=== PATIENT | female | born 1980 | race Caucasian/White ===

== ENCOUNTER 2020-02-06 08:56 | Outpatient (REF) | payer BC, SELFPAY ==
--- NOTE | 2020-02-06 | XR_ITS ---
EXAMINATION: XR CHEST CLINICAL INFORMATION: Shortness of breath. Mild intermittent asthma. COMPARISON: None TECHNIQUE: 2 views of the chest were obtained. FINDINGS: Lungs are well-inflated and clear. Trachea is midline in position. No interstitial disease, consolidation or mass. No pleural effusion or pneumothorax. Cardiac silhouette and pulmonary vessels are normal in size. The mediastinum and edd have normal contour. The visualized bones, and upper abdomen, are unremarkable. XR/XR chest 2V IMPRESSION: No acute cardiopulmonary abnormality.
[2020-02-06 10:06] LABS: MANUAL DIFF FLAG NO
[2020-02-06 10:33] LABS: Basophils Percent Auto 0.7 % (0-2); Eosinophils Absolute Auto 0.2 X10*3/uL (0.0-0.4); Eosinophils Percent Auto 4.1 % (0-4); Hematocrit 38.6 % (37-47); Imm Gran Abs Auto 0.01 X10*3/uL (0.00-0.03); Imm Gran Pct Auto 0.2 % (0.0-0.4); Lymphocytes Absolute Auto 2.1 X10*3/uL (1.2-4.9); Lymphocytes Percent Auto 38.1 % (20-40); Mean Corpuscular HGB Conc 33.7 g/dl (31.0-35.0); Mean Corpuscular Hemoglobin 29.2 pg (27.0-33.0); Mean Corpuscular Volume 86.7 fL (80-98); Mean Platelet Volume 11.3 fL (9.4-12.3); Monocytes Absolute Auto 0.3 X10*3/uL (0.1-1.2); Neutrophils Absolute Auto 2.8 X10*3/uL (2.0-8.3); Neutrophils Percent Auto 51.9 % (45-73); Platelet Count 252 X10*3/uL (160-400); Red Blood Count 4.45 X10*6/uL (4.20-5.50); Red Cell Distribution Width 12.8 % (11.0-16.0); White Blood Count 5.4 X10*3/uL (4.8-10.8)
[2020-02-06 10:39] LABS: Alanine Aminotransferase 11 U/L (0-31); Albumin Level 4.3 g/dL (3.5-5.0); Alkaline Phosphatase 28 U/L (39-117); Anion Gap 14 (12-20); Aspartate Amino Transferase 14 U/L (5-31); Bilirubin Total 0.6 mg/dL (0.0-1.0); Blood Urea Nitrogen 13 mg/dL (9-16); Calcium 9.1 mg/dL (8.4-10.2); Carbon Dioxide 23 mmol/L (22-29); Chloride 108 mmol/L (96-108); Cholesterol 190 mg/dL; Estimated Glomerular Filt Rate > 60; Glucose Fasting 81 mg/dL (60-99); HDL Cholesterol 79 mg/dL; LDL Cholesterol Calculated 105 mg/dl; Potassium 3.9 mmol/l (3.3-5.1); Sodium 141 mmol/L (135-145); Total Protein 6.9 g/dL (6.5-8.0); Triglycerides 33 mg/dL
[2020-02-06 10:51] LABS: Thyroid Stimulating Hormone 0.83 uIU/mL (0.32-4.0); Vitamin D 25-OH Total 48.2 ng/mL (>30)
[2020-02-07 07:48] LABS: SARS COV2 IgG Negative (Negative)
== END 2020-02-06 08:57 | disposition home or self-care (01) ==
LOC: HO.LAB 08:56
PROVIDERS: PCP Internal Medicine; Visit Provider Internal Medicine
DX: R06.02 Shortness of breath (principal); J45.20 Mild intermittent asthma, uncomplicated; E03.9 Hypothyroidism, unspecified; E55.9 Vitamin D deficiency, unspecified
CPT/HCPCS: 36415; 71046; 80053; 80061; 82306; 84439; 84443; 85025; 86769

== ENCOUNTER 2020-12-03 10:31 | Outpatient (REF) | payer BC, SELFPAY ==
[2020-12-03 11:53] LABS: Free T4 (Free Thyroxine) 1.08 ng/dL (0.71-1.85); Thyroid Stimulating Hormone 0.47 uIU/mL (0.32-4.0); Vitamin D 25-OH Total 37.6 ng/mL (>30)
== END 2020-12-03 10:32 | disposition home or self-care (01) ==
LOC: HO.LAB 10:31
PROVIDERS: PCP Internal Medicine; Visit Provider Neuromusculoskeletal Medicine, Sports Medicine
DX: E03.9 Hypothyroidism, unspecified (principal); E04.1 Nontoxic single thyroid nodule; E55.9 Vitamin D deficiency, unspecified
CPT/HCPCS: 36415; 82306; 84439; 84443

== ENCOUNTER 2021-04-10 15:32 | Outpatient (REF) | payer BC, SELFPAY ==
[2021-04-10 16:44] LABS: Free T4 (Free Thyroxine) 0.99 ng/dL (0.71-1.85); Thyroid Stimulating Hormone 0.88 uIU/mL (0.32-4.0); Vitamin D 25-OH Total 33.2 ng/mL (>30)
== END 2021-04-10 15:33 | disposition home or self-care (01) ==
LOC: HO.LAB 15:32
PROVIDERS: PCP Internal Medicine; Visit Provider Neuromusculoskeletal Medicine, Sports Medicine
DX: E04.0 Nontoxic diffuse goiter (principal); E03.2 Hypothyroidism due to medicaments and other exogenous substances; E55.9 Vitamin D deficiency, unspecified
CPT/HCPCS: 36415; 82306; 84439; 84443

== ENCOUNTER 2021-04-26 16:03 | Outpatient (REF) | payer BC, SELFPAY ==
--- NOTE | ~2021-04-26 | US_ITS ---
EXAMINATION: US THYROID CLINICAL INFORMATION: Hypothyroid, goiter. COMPARISON: None TECHNIQUE: Linear transducer grayscale and color Doppler examination with attention to the region of the thyroid. FINDINGS: SIZE: Measurements of the thyroid lobes and nodules are given in sagittal, anteroposterior and transverse dimensions respectively. Right Thyroid Lobe: 3.6 x 1.0 x 1.0 cm, volume 1.9 mL. Parenchyma: The gland echotexture is homogeneous. Thyroid vascularity is normal. Left Thyroid Lobe: 3.7 x 1.0 x 1.0 cm, volume 1.9 mL. Parenchyma: The gland echotexture is homogeneous. Thyroid vascularity is normal. Isthmus: 0.3 cm in maximum AP dimension. No focal thyroid nodule is seen. NODES: There are small lymph nodes seen in the right midpole measuring 1.5 x 0.7 x 0.5 cm and 0.8 x 0.6 x 0.4 cm. US/US thyroid IMPRESSION: 1. Unremarkable thyroid ultrasound. No nodule seen. 2. There are small lymph nodes in the right mid neck with the largest measuring 1.5 cm without aggressive features. ACR TI-RADS RECOMMENDATION REFERENCE: Ultrasound-guided fine-needle aspiration, followup ultrasound, no further follow up. * TR1 (0 point) and TR 2 (2 points): No FNA or follow up * TR3 (3 points): FNA if more than or equal to 2.5 cm in maximum dimension, followup ultrasound in 1, 3 and 5 years if 1.5 to 2.4 cm in maximum dimension. * TR4 (4-6 points): FNA if more than or equal to 1.5 cm in maximum dimension, followup ultrasound in 1, 2, 3 and 5 years if 1 to 1.4 cm in maximum dimension. * TR5 (more than or equal to 7 points): FNA if more than or equal to 1 cm in maximum dimension, followup ultrasound every year for 5 years if 0.5 to 0.9 cm in maximum dimension. * TR3, TR4 or TR5 nodules that are below the size threshold for follow up receive no follow up.
== END 2021-04-26 16:04 | disposition home or self-care (01) ==
LOC: HO.US 16:03
PROVIDERS: PCP Internal Medicine; Visit Provider Neuromusculoskeletal Medicine, Sports Medicine
DX: E03.9 Hypothyroidism, unspecified (principal); E04.9 Nontoxic goiter, unspecified
CPT/HCPCS: 76536

== ENCOUNTER 2022-04-10 15:29 | Outpatient (REF) | payer BC, SELFPAY ==
[2022-04-10 18:13] LABS: Free T4 (Free Thyroxine) 1.16 ng/dL (0.71-1.85); Thyroid Stimulating Hormone 0.75 uIU/mL (0.32-4.0); Vitamin D 25-OH Total 49.6 ng/mL (>30)
== END 2022-04-10 15:30 | disposition home or self-care (01) ==
LOC: HO.LAB 15:29
PROVIDERS: PCP Internal Medicine; Visit Provider Neuromusculoskeletal Medicine, Sports Medicine
DX: E03.2 Hypothyroidism due to medicaments and other exogenous substances (principal); E55.9 Vitamin D deficiency, unspecified
CPT/HCPCS: 36415; 82306; 84439; 84443

== ENCOUNTER 2022-10-27 07:50 | Outpatient (REF) | payer BC, SELFPAY ==
[2022-10-27 08:11] LABS: MANUAL DIFF FLAG NO
[2022-10-27 08:28] LABS: Basophils Absolute Auto 0.1 X10*3/uL (0.0-0.2); Eosinophils Absolute Auto 0.2 X10*3/uL (0.0-0.4); Eosinophils Percent Auto 4.1 % (0-4); Hematocrit 36.6 % (37.0-47.0); Hemoglobin 12.3 g/dl (12.0-16.0); Imm Gran Abs Auto 0.01 X10*3/uL (0.00-0.03); Imm Gran Pct Auto 0.2 % (0.0-0.4); Lymphocytes Percent Auto 38.6 % (20-40); Mean Corpuscular HGB Conc 33.6 g/dl (31.0-35.0); Mean Corpuscular Hemoglobin 30.8 pg (27.0-33.0); Mean Corpuscular Volume 91.5 fL (80.0-98.0); Mean Platelet Volume 10.5 fL (9.4-12.3); Monocytes Absolute Auto 0.2 X10*3/uL (0.1-1.2); Monocytes Percent Auto 4.5 % (2-11); Neutrophils Absolute Auto 2.6 x10*3/uL (2.0-8.3); Neutrophils Percent Auto 51.6 % (45-73); Platelet Count 247 X10*3/uL (160-400); Red Cell Distribution Width 12.1 % (11.0-16.0); White Blood Count 5.1 X10*3/uL (4.8-10.8)
[2022-10-27 09:14] LABS: Alanine Aminotransferase 10 U/L (0-31); Albumin Level 3.9 g/dL (3.5-5.0); Alkaline Phosphatase 26 U/L (39-117); Anion Gap 13 (12-20); Aspartate Amino Transferase 14 U/L (5-31); Bilirubin Total 0.5 mg/dL (0.0-1.0); Blood Urea Nitrogen 12 mg/dL (9-16); Calcium 9.2 mg/dL (8.4-10.2); Carbon Dioxide 20 mmol/L (22-29); Chloride 110 mmol/L (96-108); Cholesterol 166 mg/dL (<200); Estimated Glomerular Filt Rate > 60; Glucose Fasting 78 mg/dL (60-99); HDL Cholesterol 61 mg/dL (>40); LDL Cholesterol Calculated 99 mg/dL (<100); Potassium 3.7 mmol/L (3.3-5.1); Sodium 139 mmol/L (135-145); Total Protein 6.4 g/dL (6.5-8.0); Triglycerides 31 mg/dL (<150)
[2022-10-27 10:38] LABS: Vitamin D 25-OH Total 37.9 ng/mL (>30)
== END 2022-10-27 07:51 | disposition home or self-care (01) ==
LOC: HO.LAB 07:50
PROVIDERS: PCP Internal Medicine; Visit Provider Internal Medicine
DX: Z00.00 Encounter for general adult medical examination without abnormal findings (principal); E03.9 Hypothyroidism, unspecified; E55.9 Vitamin D deficiency, unspecified; J45.20 Mild intermittent asthma, uncomplicated
CPT/HCPCS: 36415; 80053; 80061; 82306; 84443; 85025

== ENCOUNTER 2023-04-06 09:39 | Outpatient (REF) | payer BC, SELFPAY ==
[2023-04-06 11:27] LABS: Alanine Aminotransferase 15 U/L (0-31); Albumin Level 4.4 g/dL (3.5-5.0); Anion Gap 14 (12-20); Aspartate Amino Transferase 14 U/L (5-31); Blood Urea Nitrogen 12 mg/dL (9-16); Calcium 9.4 mg/dL (8.4-10.2); Carbon Dioxide 25 mmol/L (22-29); Chloride 105 mmol/L (96-108); Cholesterol 189 mg/dL (<200); Estimated Glomerular Filt Rate > 60; Glucose Fasting 87 mg/dL (60-99); HDL Cholesterol 80 mg/dL (>40); LDL Cholesterol Calculated 102 mg/dL (<100); Magnesium 2.2 mg/dL (1.6-2.6); Phosphorus 3.6 mg/dL (2.7-4.5); Potassium 3.7 mmol/L (3.3-5.1); Sodium 140 mmol/L (135-145); Triglycerides 39 mg/dL (<150)
[2023-04-06 11:44] LABS: Free T4 (Free Thyroxine) 1.18 ng/dL (0.71-1.85); Thyroid Stimulating Hormone 0.53 uIU/mL (0.32-4.0); Vitamin D 25-OH Total 36.6 ng/mL (>30)
== END 2023-04-06 09:40 | disposition home or self-care (01) ==
LOC: HO.LAB 09:39
PROVIDERS: PCP Internal Medicine; Visit Provider Neuromusculoskeletal Medicine, Sports Medicine
DX: E55.9 Vitamin D deficiency, unspecified (principal); E03.2 Hypothyroidism due to medicaments and other exogenous substances
CPT/HCPCS: 36415; 80051; 80061; 82040; 82306; 82310; 82565; 82947; 83735; 84100; 84439; 84443; 84450; 84460; 84520

== ENCOUNTER 2023-09-02 09:13 | Outpatient (REF) | payer BC, SELFPAY ==
[2023-09-02 11:08] LABS: Alanine Aminotransferase 14 U/L (0-31); Albumin Level 4.2 g/dL (3.5-5.0); Anion Gap 13 (12-20); Aspartate Amino Transferase 18 U/L (5-31); Blood Urea Nitrogen 13 mg/dL (9-16); Calcium 9.3 mg/dL (8.4-10.2); Carbon Dioxide 25 mmol/L (22-29); Chloride 106 mmol/L (96-108); Cholesterol 195 mg/dL (<200); Estimated Glomerular Filt Rate > 60; Glucose Fasting 77 mg/dL (60-99); HDL Cholesterol 68 mg/dL (>40); LDL Cholesterol Calculated 117 mg/dL (<100); Magnesium 2.2 mg/dL (1.6-2.6); Phosphorus 3.7 mg/dL (2.7-4.5); Potassium 3.7 mmol/L (3.3-5.1); Sodium 140 mmol/L (135-145); Triglycerides 54 mg/dL (<150)
[2023-09-02 11:15] LABS: Free T4 (Free Thyroxine) 1.02 ng/dL (0.71-1.85); Thyroid Stimulating Hormone 0.91 uIU/mL (0.32-4.0); Vitamin D 25-OH Total 41.6 ng/mL (>30)
== END 2023-09-02 09:14 | disposition home or self-care (01) ==
LOC: HO.LAB 09:13
PROVIDERS: PCP Internal Medicine; Visit Provider Neuromusculoskeletal Medicine, Sports Medicine
DX: E04.0 Nontoxic diffuse goiter (principal); E03.2 Hypothyroidism due to medicaments and other exogenous substances; E55.9 Vitamin D deficiency, unspecified; Z13.1 Encounter for screening for diabetes mellitus
CPT/HCPCS: 36415; 80051; 80061; 82040; 82306; 82310; 82565; 82947; 83735; 84100; 84439; 84443; 84450; 84460; 84520

== ENCOUNTER 2023-12-13 15:25 | Outpatient (REF) | payer BC, SELFPAY ==
[2023-12-13 17:00] LABS: Albumin Level 4.2 g/dL (3.5-5.0); Calcium 9.2 mg/dL (8.4-10.2); Phosphorus 3.9 mg/dL (2.7-4.5)
[2023-12-13 17:05] LABS: Thyroid Stimulating Hormone 0.74 uIU/mL (0.32-4.0); Vitamin D 25-OH Total 60.9 ng/mL (>30)
[2023-12-14 09:04] LABS: Triiodothyronine T3 Free 2.8 pg/mL (2.3-4.2)
== END 2023-12-13 15:26 | disposition home or self-care (01) ==
LOC: HO.LAB 15:25
PROVIDERS: PCP Internal Medicine; Visit Provider Neuromusculoskeletal Medicine, Sports Medicine
DX: E03.2 Hypothyroidism due to medicaments and other exogenous substances (principal); E55.9 Vitamin D deficiency, unspecified
CPT/HCPCS: 36415; 82040; 82306; 82310; 83735; 84100; 84439; 84443; 84481

== ENCOUNTER 2024-04-25 10:06 | Outpatient (REF) | payer BC, SELFPAY ==
[2024-04-25 12:48] LABS: Alanine Aminotransferase 18 U/L (0-31); Albumin Level 4.2 g/dL (3.5-5.0); Anion Gap 12 (12-20); Aspartate Amino Transferase 22 U/L (5-31); Blood Urea Nitrogen 11 mg/dL (9-16); Calcium 9.2 mg/dL (8.4-10.2); Carbon Dioxide 25 mmol/L (22-29); Chloride 108 mmol/L (96-108); Cholesterol 224 mg/dL (<200); Estimated Glomerular Filt Rate > 60; Glucose Fasting 86 mg/dL (60-99); HDL Cholesterol 69 mg/dL (>40); LDL Cholesterol Calculated 146 mg/dL (<100); Magnesium 2.3 mg/dL (1.6-2.6); Phosphorus 3.5 mg/dL (2.7-4.5); Potassium 3.9 mmol/L (3.3-5.1); Sodium 141 mmol/L (135-145); Triglycerides 47 mg/dL (<150)
[2024-04-25 13:02] LABS: Free T4 (Free Thyroxine) 1.27 ng/dL (0.71-1.85); Thyroid Stimulating Hormone 0.62 uIU/mL (0.32-4.0); Vitamin D 25-OH Total 50.5 ng/mL (>30)
== END 2024-04-25 10:07 | disposition home or self-care (01) ==
LOC: HO.LAB 10:06
PROVIDERS: PCP Internal Medicine; Visit Provider Neuromusculoskeletal Medicine, Sports Medicine
DX: M94.9 Disorder of cartilage, unspecified (principal); N28.9 Disorder of kidney and ureter, unspecified
CPT/HCPCS: 36415; 80051; 80061; 82040; 82306; 82310; 82565; 82947; 83735; 84100; 84439; 84443; 84450; 84460; 84520

== ENCOUNTER 2024-08-13 14:27 | Outpatient (AMB) | payer BC, SELFPAY ==
--- NOTE | 2024-08-13 14:31 | MHC.PC.OV ---
Vital Signs 08/13/24 14:35 Height 5 ft 1.81 in Weight 140 lb BMI 25.8 BP 119/56 L Respiration 14 Pulse 70 Pulse Source Pulse Oximeter Temp 97.8 F Temp Source Temporal Artery Scan Pulse Oximetry (%) 99 Oxygen Delivery Method Room Air Intake Visit Reasons: follow up 3D Designer Required: No Accompanied by: Self / Same As Patient Allergies amoxicillin Allergy (Mild, Verified 08/13/24 14:59) hives Sulfa (Sulfonamide Antibiotics) Allergy (Mild, Verified 08/13/24 14:59) Hives liquid prednisone Allergy (Mild, Uncoded 08/13/24 14:59) Vomiting Medication List - Last Reconciled 08/13/24 by Penny Goss PA-C albuterol sulfate 90 mcg/actuation (Ventolin HFA) 2 puffs inhalation Q6H PRN cholecalciferol (vitamin D3) 50 mcg PO DAILY levothyroxine (Synthroid) 88 mcg PO DAILY multivitamin 1 tab PO DAILY [id number] fum-folic ac-om3 28 mg iron- 800 mcg (One A Day Women's DHA) pkgs PO Tobacco use date assessed: 08/13/24 Dental Screening Dental Screen Date: 08/13/24 Did you have a dental visit in the last 12 months?: Yes Did you have a dental problem in the last 6 months where you did not have access to dental care?: No Was dental information given to patient?: Patient has dentist HPI follow up HPI Details The patient is a 44-year-old female presenting for a new patient appointment and referral for infertility treatment. The patient and her are attempting to conceive, but have been unsuccessful thus far. She was referred by her ENVIRONMENTAL ENGINEERING ASSISTANT to seek further evaluation and treatment for infertility. The patient has a history of hypercholesterolemia, with recent blood work indicating a total cholesterol level of 224 mg/dL, which is above the desired level of 200 mg/dL. Her LDL cholesterol decreased slightly from 117 mg/dL to 114 mg/dL, and her HDL cholesterol is 69 mg/dL. She has a history of anemia, which has been noted in past medical evaluations. The patient reports a history of hypothyroidism and is currently on levothyroxine therapy. The patient has gained approximately 12 pounds over the past year and a half, despite maintaining a healthy diet and lifestyle. She denies any significant changes in her diet or exercise routine that could account for this weight gain. 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 - Family Planning: The patient and her are actively trying to conceive. - Nutrition: The patient maintains a healthy diet, avoiding soda and consuming steel-cut oats. - Weight Management: The patient has gained 12 pounds over the last year and a half despite a healthy lifestyle. [facility] Medical History (Updated 08/13/24 @ 15:25 by Penny Goss PA-C) Pure hypercholesterolemia, unspecified Infertility management History of mammogram (~01/08/23) History of COVID-19 Palpitations Mononucleosis Migraine headache Anemia Vitamin D deficiency Hypothyroidism Establishing care with new doctor, encounter for Surgical History H/O wisdom tooth extraction History of tonsillectomy Family History Father Dementia High cholesterol Mother Osteoporosis High cholesterol 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 1. Little interest or pleasure in doing things: not at all 2. Feeling down, depressed, or hopeless: not at all 3. Trouble falling or staying asleep, or sleeping too much: not at all 4. Feeling tired or having little energy: not at all 5. Poor appetite or overeating: not at all 6. Feeling bad about yourself - or that you are a failure or have let yourself or your family down: not at all 7. Trouble concentrating on things, such as reading the newspaper or watching television: not at all 8. Moving or speaking so slowly that other people could have noticed. Or the opposite - being so fidgety or restless that you have been moving around a lot more than usual: not at all 9. Thoughts that you would be better off or of hurting yourself in some way: not at all Total score: 0 Depression Screening Interpretation: Negative Depression Screening Done: Yes [id number] - PHQ-9 Billing: Yes Source: Developed by Drs. Paul Segal, Erica Vincent, Brice Leger and colleagues, with an educational gamal from [employer]. Thrive Questionnaire Date Thrive assessed: 08/13/24 I am a: Patient What is your living situation today?: I have a steady place to live Within the past 12 months, did the food you bought not last and you didn't have the money to get more?: Never true Within the past 12 months, did you worry whether your food would run out before you got money to buy more?: Never true Do you have trouble paying for medicines?: No Do you have trouble getting transportation to medical appointments?: No Do you have trouble paying your heating and electricity bill?: No Do you have trouble taking care of your child, family member or friend?: No Do you have trouble with day-to-day activities such as bathing, preparing meals, shopping, managing finances, etc.?: No Are you currently unemployed and looking for a job?: No Are you interested in more education?: No Please select the resources that you would like help with: None THRIVE Score: 0 AUDIT C Alcohol Use Questionnaire (AUDIT-C) 1. How often do you have a drink containing alcohol?: Never 3. How often do you have six or more drinks on one occasion?: Never Total Score: 0 Score Reviewed/Action Taken: No SHELLEY-7 AMB Questionnaire SHELLEY-7 Date SHELLEY - 7 assessed: 08/13/24 Feeling nervous, anxious, or on edge: 0 = Not at all Not being able to stop or control worryin = Not at all Worrying too much about different things: 0 = Not at all Trouble relaxin = Not at all Being so restless that it is hard to sit still: 0 = Not at all Becoming easily annoyed or irritable: 0 = Not at all Feeling afraid as if something awful might happen: 0 = Not at all Total SHELLEY-7 score (0-4 normal; 5-9 mild; 10-14 moderate; 15-21 severe): 0 Source: Developed by Erica Kimball.W. Carlton, Brice Leger and colleagues, with an educational gamal from [employer]. SHELLEY-7 Assessment Billing SHELLEY-7 Assessment Tool: SHELLEY-7 Assessment 45205 Review of Systems Const Details: - Cardiovascular: Denies chest pain, palpitations, or syncope. - Respiratory: Denies dyspnea, cough, or wheezing. - Gastrointestinal: Denies abdominal pain, nausea, or vomiting. - Genitourinary: Denies dysuria or abnormal discharge. - Musculoskeletal: Denies back pain or joint pain. - Neurological: Denies headaches or dizziness. - General: Reports weight gain of 12 pounds over the past year and a half. Physical exam (Primary Care) Vital Signs: Last Vital Signs Temp 97.8 F 08/13/24 14:35 Pulse 70 08/13/24 14:35 Resp 14 08/13/24 14:35 BP 119/56 L 08/13/24 14:35 Pulse Ox 99 08/13/24 14:35 Oxygen Delivery Method Room Air 08/13/24 14:35 Care Plan Goal for BP management: <140/90 at Goal BMI result Body Mass Index 25.8 BMI Assessment/Plan discussion: High BMI High, discussed plan: lifestyle, weight reduction, dietary, physical activity and alcohol moderation Tobacco/Smoking Status: Tobacco use Status Tobacco use date assessed 08/13/24 08/13/24 14:33 Patient Tobacco Use Status Never used Tobacco 08/13/24 14:46 PHQ-9: PHQ-9 Score PHQ-9: Total score 0 08/13/24 14:33 Depression Screening Interpretation: Negative Thrive Assessment: Date of Thrive Assessment Date Thrive assessed 08/13/24 08/13/24 14:33 Const Other: Appearance: Alert. Oriented X3. No acute distress. Head: Normal external exam. Normocephalic. Atraumatic. Eyes: Pupils are equal, round, and reactive to light. Extraocular movements intact. Conjunctiva and sclera normal. Eyelids normal. Ears: External auditory canal normal. Tympanic membranes normal. Throat: Pharynx normal. Uvula midline. Moist mucous membranes. Neck: Normal inspection. Neck supple. Full range of motion. No adenopathy. Thyroid Normal. No meningeal signs. No neck mass noted. Cardiovascular: Normal heart rate and rhythm. Heart sound normal. No murmurs noted. Pulses normal throughout. Respiratory: No respiratory distress. Painless inspiration. Breath sounds normal. No wheezes/rales/rhonchi noted. Chest nontender. No accessory muscle usage noted or decreased air movement noted. Abdomen: Soft and nontender. Bowel sounds normal in all 4 quadrants. No distention noted. No organomegaly noted. No visible injury noted. Back: No costovertebral angle tenderness. Full range of motion noted. Skin: Skin warm and dry. Normal skin color. Normal skin turgor. No rashes/lesions/lacerations noted. Extremities: No lower extremity edema. Extremities exhibit normal range of motion. Extremities nontender. Neuro: Oriented X 3. No motor deficit. No sensory deficit. Reflexes normal. Results Reviewed Results Reviewed: - Labs: Total cholesterol 224 mg/dL, LDL cholesterol 114 mg/dL, HDL cholesterol 69 mg/dL. - Labs: Thyroid function tests normal. Coding Level of Care Code New Pt Level 4 (01310) Complex EM visit Add On G2211 Diagnoses Pure hypercholesterolemia, unspecified E78.00 Anemia D64.9 Hypothyroidism E03.9 Infertility management Z31.9 Additional Codes PHQ-9 - 93585 - PHQ-9 Billing: Yes ([id number]) SHELLEY-7 Assessment Billing - SHELLEY-7 Assessment Tool: SHELLEY-7 Assessment 61776 ([id number]) Assessment & Plan Assessment & Plan (1) Pure hypercholesterolemia, unspecified: Code(s): E78.00 - Pure hypercholesterolemia, unspecified Category: Medical Plan: The patient has hypercholesterolemia with a total cholesterol level of 224 mg/dL. She is advised against starting cholesterol medication due to a family history of adverse reactions. Dietary modifications were discussed, including reducing egg and cheese intake. Condition is chronic and stable will continue to monitor. (2) Anemia: Code(s): D64.9 - Anemia, unspecified Category: Medical Plan: The patient has a history of anemia and will undergo further blood work to assess current status. Iron studies and ferritin levels will be checked. Condition is chronic and stable will continue to monitor. (3) Hypothyroidism: Code(s): E03.9 - Hypothyroidism, unspecified Category: Medical Plan: The patient is on levothyroxine for hypothyroidism, with thyroid function tests reported as normal. Condition is chronic and stable continue to monitor. (4) Infertility management: Code(s): Z31.9 - Encounter for procreative management, unspecified Category: Medical Plan: The patient is experiencing infertility and has been referred to an IVF clinic for further evaluation and treatment. A referral to an shoe repair supervisor was also made to address any underlying hormonal issues. Condition is chronic and stable continue to monitor. Plan Plan Patient was informed and verbally consented to the use of an ambient scribe for clinic note documentation during this visit. 1. Hypercholesterolemia The patient has hypercholesterolemia with a total cholesterol level of 224 mg/dL. She is advised against starting cholesterol medication due to a family history of adverse reactions. Dietary modifications were discussed, including reducing egg and cheese intake. 2. Anemia The patient has a history of anemia and will undergo further blood work to assess current status. Iron studies and ferritin levels will be checked. 3. Hypothyroidism The patient is on levothyroxine for hypothyroidism, with thyroid function tests reported as normal. 4. Infertility The patient is experiencing infertility and has been referred to an IVF clinic for further evaluation and treatment. A referral to an shoe repair supervisor was also made to address any underlying hormonal issues. During the visit, we discussed the patient's hypercholesterolemia and the decision to avoid cholesterol medication due to her family history of adverse reactions. We reviewed dietary changes to help manage her cholesterol levels. We also addressed her history of anemia and planned for further blood work to evaluate her current status. The patient was referred to an IVF clinic and an shoe repair supervisor to address her infertility and any potential hormonal issues. Follow-up appointments and further evaluations were planned to monitor her conditions and progress. Orders: Orders Hemoglobin A1c Today Z00.00 - Encounter for general adult medical examination without abnormal findings Complete Blood Count Auto Diff Today Z00.00 - Encounter for general adult medical examination without abnormal findings Vitamin B12 and Folate Today Z00.00 - Encounter for general adult medical examination without abnormal findings IRON PROFILE Today D64.9 - Anemia, unspecified Ferritin Today D64.9 - Anemia, unspecified C Reactive Protein Today Z00.00 - Encounter for general adult medical examination without abnormal findings Referrals ENVIRONMENTAL ENGINEERING ASSISTANT Referral Z31.9 - Encounter for procreative management, unspecified Endocrinology Referral E03.9 - Hypothyroidism, unspecified, E55.9 - Vitamin D deficiency, unspecified Patient Instructions: - Follow a low-cholesterol diet, reducing intake of eggs and cheese. - Complete the recommended blood work, including iron studies and ferritin levels. - Attend follow-up appointments with the IVF clinic and shoe repair supervisor. - Monitor weight and maintain a healthy diet and lifestyle.
[2024-08-13 14:35] VITALS: BP 119/56; PULSE 70; RESP 14; TEMP 36.6; O2SAT 99; BMI 25.8
--- OUTSIDE RECORDS SUMMARY | 2024-08-13 15:43 | XMS_ITS | Data Portability ---
Author Organization [facility], , [facility] Address [address] [place] [address] Assessment Encounter Date Assessment Date Assessment LastModified by Organization Details LastModified Time 02/06/2016 02/06/2016 Counseled 15/30 minutes on IUD placement, mechanism of action and possible complications. Reminded 11 days to full protection from with Mirena or Carmen. Reasons to comeback include increasing pain, discharge, fever. Nothing in vagina 3-5 days . Return to office for string check if cannot find string 6 weeks. [email or web address] Not available 02/06/2016 13:35:33 05/10/2017 05/10/2017 After a discussion of treatment options, which included consideration of best practices and patient preferences, the following treatment plan and objectives were adopted: [email or web address] Not available 05/10/2017 15:20:58 03/29/2018 03/29/2018 IUD removed without difficulty. Will set up f/u with Caleb Heck for new IUD. [email or web address] Not available 03/29/2018 09:32:40 05/21/2018 05/21/2018 Counseled 15/30 minutes on IUD placement, mechanism of action and possible complications. Reminded 11 days to full protection from with Mirena or Carmen. Reasons to comeback include increasing pain, discharge, fever. Nothing in vagina 3-5 days . Return to office for string check if cannot find string 6 weeks. [email or web address] Not available 05/21/2018 15:11:14 Plan of Treatment Reminders Order Date Submit Date Provider Last Modified By Organization Details Last Modified Time Details Appointments None recorded. Lab test, urine 2015 016 [facility], [address] [place], [address], 6 04:11:14 Referral None recorded. Procedures None recorded. Surgeries None recorded. Imaging None recorded. Medication Orders None recorded. Patient Targets Encounter Date Encounter Id Patient Goals Patient Target Last Modified By Organization Details Last Modified Time 05/10/2017 [id number] get regular exercisehealthy diet rich in fruits, veggies and whole grains pkeough Not available 05/13/2017 12:44:43 Patient Instructions Encounter Date Encounter Id Patient Instructions Last Modified By Organization Details Last Modified Time 05/10/2017 [id number] Well Visit, Ages 18 to 65: Care Instructions [email or web address] Not available 05/10/2017 15:31:04 05/21/2018 [id number] After a discussion of treatment options, which included consideration of best practices and patient preferences, the above treatment plan and objectives were adopted as above. [email or web address] Not available 05/22/2018 12:41:12 Reason for Referral None Reported. Results Created Date Observation Date Name Description Value Unit Range Abnormal Flag Note LastModifiedBy Organization Detail LastModifiedTime 02/06/20 16 02/06/2016 pregn haim test, urine HCG POC NEGATI VE Not Available [address], [address], 02/06/2016 13:46:13 02/16/20 17 02/19/2017 T4, free, serum free T4 1.37 NG/dL 0.75-1 .54 Not Available [address], [address], 02/19/2017 14:19:46 02/16/20 17 02/19/2017 TSH, serum or plasm a TSH 0.88 uIU/m L 0.50-6 .00 The [employer] End[employer] rinol ogy and Ameri can Thyro id Assoc iatio n recom mend goal TSH value s betwe en 0.4-4 .0 mIU/m L. Not Available [address], [address], 02/19/2017 14:19:47 02/16/20 17 02/19/2017 vitam in D, 25-hy droxy , total , serum vitamin D 25-hydroxy EIA 36.7 NG/mL 20.0-9 9.9 Thera py is based on measu remen t of total 25-OH D, with level s less than 20 ng/mL indic ative of Vitam in D defic iency . Level s betwe en 20ng/ mL and 30 ng/mL sugge insuf ficie ncy. Optim al Level s are great er than 30 ng/mL . Not Available [address], [address], 02/19/2017 14:19:47 08/24/19 18 08/26/2017 T4, free, serum free T4 1.26 NG/dL 0.75-1 .54 Not Available [address], [address], 08/26/2017 12:38:55 08/24/19 18 08/26/2017 vitam in D, 25-hy droxy , total , serum vitamin D 25-hydroxy EIA 38.0 NG/mL 20.0-9 9.9 Thera py is based on measu remen t of total 25-OH D, with level s less than 20 ng/mL indic ative of Vitam in D defic iency . Level s betwe en 20ng/ mL and 30 ng/mL [facility] n[facility]. Optim al Level s are great er than 30 ng/mL . Not Available [address], [address], 08/26/2017 13:12:34 08/24/19 18 08/26/2017 TSH, serum or plasm a TSH 0.39 uIU/m L 0.50-6 .00 low The [employer]i can [employer]le ge [employer] Endoc rinol ogy and Ameri can Thyro id Assoc iatio n recom mend goal TSH value s betwe en 0.4-4 .0 mIU/m L. Not Available [address], [address], 08/26/2017 13:15:36 02/15/20 18 02/19/2018 T4, free, serum free T4 1.31 NG/dL 0.75-1 .54 Not Available [address], [address], 02/19/2018 11:55:50 02/15/20 18 02/19/2018 TSH, serum or plasm a TSH 1.05 uIU/m L 0.50-6 .00 The [employer] can [employer] ge [employer] Endoc rinol ogy and Ameri can Thyro id Assoc iatio n recom mend goal TSH value s betwe en 0.4-4 .0 mIU/m L. Not Available [address], [address], 02/19/2018 12:16:51 02/15/20 18 02/19/2018 vitam in D, 25-hy droxy , total , serum vitamin D 25-hydroxy EIA 31.2 NG/mL 20.0-9 9.9 Thera py is based on measu remen t of total 25-OH D, with level s less than 20 ng/mL indic ative of Vitam in D defic iency . Level s betwe en 20ng/ mL and 30 ng/mL sugge st insuf ficie ncy. Optim al Level s are great er than 30 ng/mL . Not Available [address], [address], 02/19/2018 12:16:52 05/22/19 19 05/21/2018 pregn haim test, urine HCG POC NEGATI VE Not Available [address], [address], 05/21/2018 15:44:24 11/15/19 17 11/13/2016 US, thyro id OBSERV ATION: Thyroi d ultras ound Goiter , hypoth yroidi sm The thyroi d displa ys no focal abnorm ality the right lobe measur es 3.5 x 1 x 1.7 cm the left lobe measur es 3.6 x 0.9 x 0.7 cm. The gland is of homoge neous but increa sed echote xture throug hout. A 11 x 16 x 6 mm lymph node is seen adjace nt to the lower pole of the right gland. Althou gh this node is not enlarg ed and does not displa y a fatty hilus. Impres kristin: Slight ly small gland with increa sed echoge nicity sugges tive of prior thyroi ditis. Normal size right lymph node adjace nt to the thyroi d which does not displa y entire ly normal anatom y, this is still probab ly of no clinic al signif icance unless the patien t has a known malign haim. Electr onical ly signed Geovany gonzalez Physic manjinder: Cole Velazquez [facility] (Imaging) [address], [place], [address], 05/10/2017 15:17:19 Result Notes None recorded. Problems Name Problem SNOMED Code Status Onset Date Resolution Date Notes Provider Name and Address Organization Details Recorded Time Hypothyroidi sm 34808468 Active no standing orders per [facility] 13:54:20 Problem Notes None recorded. Procedures Surgical History Date Name Laterality Status Provider Name and Address Organization Details Recorded Time 9 POC hCG Testing completed Verna garcia PA-C [address] [place] [address], [address] [place] [address], [facility] 05/21/2018 18:13:10 9 IUD Insertion completed Verna garcia PA-C [address] [place] [address], [phone], [facility] 05/21/2018 18:13:05 9 IUD Removal completed Peggy Beach NP [address] [place] [address], [phone], [facility] 03/29/2018 09:31:58 6 IUD Insertion completed Kimberly Ellis MD [address] [place] [address], [phone], [facility] 02/06/2016 14:13:18 Imaging Results None recorded. Procedure Notes None recorded. Medical Equipment None Reported. Allergies Allergen ID Allergen Name Allergen Category Reaction Reaction Severity Criticality Documentation Date Start Date Code Code System Note Provider Name and Address Organization Details Recorded Time 18180426 amoxicill in medicatio n Not available Not available Not available 09/14/2014 723 RxNorm Estephania Aly [facility] 5 15:06:30 377916 Substance with sulfonami de structure and antibacte rial mechanism of action (substanc e) medicatio n Not available Not available Not available 09/14/2014 94527 8003 SNOMED [facility] 5 15:06:30 Medications Name Sig Start Date Stop Date Status Note LastModified by Organization Details LastModified Time levothyrox ine 88 mcg tablet Take 1 tablet every day by oral route. active Not Available Not Available No t Available ParaGard T 380A 380 square mm intrauteri ne device Take by intraute rine route. 2018 active Placed 05/21/18 Not Available Not Available Not Available multivitam in 1 daily active Not Available Not Available Not Available Vitamin D2 2,000IU every day in the winter active Not Available Not Available No t Available albuterol sulfate 90 mcg/actuat ion breath activated powder inhaler Inhale 2 puffs every 4 hours by inhalati on route. 11/13 completed PRN Not Available Not Available Not Available Vitals Date Recorded Body height Body mass index (BMI) Body weight Systolic blood pressure Diastolic blood pressure Provider Name and Address Organization Details Last Updated DateTime 03/03/2018 157.48 cm 24.5 kg/m2 30042.38 g 118 mm[Hg] 72 mm[Hg] Penelope Yeung CMA [facility] 9 15:08:31 Date Recorded Body height Body mass index (BMI) Body weight Heart rate Systolic blood pressure Diastolic blood pressure Provider Name and Address Organization Details Last Updated DateTime 9 157.48 cm 24.7 kg/m2 50394.9 7 g 79 /min 122 mm[Hg] 76 mm[Hg] CALVIN Higuera [facility] 9 09:13:48 Date Recorded Body height Body mass index (BMI) Body weight Heart rate Systolic blood pressure Diastolic blood pressure Provider Name and Address Organization Details Last Updated DateTime 8 157.48 cm 23.9 kg/m2 35336.4 5 g 76 /min 110 mm[Hg] 64 mm[Hg] Estephania Aly MA [facility] 8 15:08:08 Date Recorded Body height Body mass index (BMI) Body weight Heart rate Oxygen saturation Oxygen saturation in Arterial blood by Pulse oximetry Systolic blood pressure Diastolic blood pressure Provider Name and Address Organization Details Last Updated DateTime 9 157.48 cm 24.4 kg/m2 39095.5 9 g 71 /min 99 % 99 % 116 mm[Hg] 76 mm[Hg] Patrice Casas [facility] 9 15:17:48 Date Recorded Body height Body weight Body mass index (BMI) Body temperature Heart rate Systolic blood pressure Diastolic blood pressure Provider Name and Address Organization Details Last Updated DateTime 6 156.85 cm 53198.9 3 g 23.4 kg/m2 98.3 [degF] 80 /min 118 mm[Hg] 80 mm[Hg] CALVIN Higuera [facility] 6 13:37:09 Social History Question Answer Notes LastModified by Organizat ion Details LastModified Time Tobacco Smoking Status Never Smoker [facility]stephania Aly [facility] 09/14/2014 15:11:18 Do You Wear A Helmet When Biking? Yes Information not available 09/14/2014 What Is Your Level Of Caffeine Consumption? Heavy Information not available 09/14/2014 How Much Tobacco Do You Chew? None Information not available 09/14/2014 What Type Of Diet Are You Following? VEGETARIAN Very Little Meat Information not available 09/14/2014 Education Post Graduate Doctorial Student Information not available 11/14/2015 How Many Days In The Past Year Have You Had A Heavy Drinking Consumption (4+ Female, 5+ Male)? 0 Information not available 09/14/2014 Are There Any Guns Present In Your Home? No Information not available 09/14/2014 Live Alone Or With Others? With Others Roommate Information not available 09/14/2014 Patient Has Health Care Proxy Signed And In Chart No 05/10/17 Information not available 09/14/2014 Marital Status Single Informatio n not available 09/14/2014 Mosquito Repellent Used Routinely Yes Information not available 09/14/2014 What Was The Date Of Your Most Recent Tobacco Screening? 03/29/2018 Information not available 09/17/2018 How Many Children Do You Have? 0 Information not available 09/14/2014 Seat Belts Used Routinely Yes Information not available 09/14/2014 Smoke Alarm In Home Yes Information not available 09/14/2014 General Stress Level High Information not available 09/14/2014 Do You Use Sunscreen Routinely? Yes Information not available 09/14/2014 Sex: Unknown Functional Status Question Answer Note LastModified by Organizat ion Details LastModified Time What is your level of alcohol consumption? 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 Family History Relationship Description Onset Age of this Age Resolved Age Notes LastModified by Organization Details LastModified Time Father Hyperlipidem ia pkeough Not available 2014 15:36:02 Mother Hyperlipidem ia pkeough Not available 2014 15:36:02 Notes:No sibs Medical History Condition Response Thyroid Disease Y Hypothyroid Y Asthma Y Gynecological History Statement/Question Response History of Abnormal Pap N Obstetrics History GPAL:G 0 P 0 0 0 0 Immunizations Vaccine Type Date Status Note Provider Nam e and Address Organization Details Recorded Time Tdap 0 completed SANTOS Ventura [facility] 09/15/2014 10:01:11 MMR 2 completed SANTOS Garcia [facility] 05/13/2015 14:55:45 Hep B, adolescent or pediatric 7 completed SANTOS Garcia [facility] 05/13/2015 14:55:45 MMR 4 completed SANTOS Garcia [facility] 05/13/2015 14:55:45 Hep B, adolescent or pediatric 7 completed Erica Orozco, SANTOS mccurdy [facility] 05/13/2015 14:55:45 Hep B, adolescent or pediatric 7 completed Erica LyonPam SANTOS mccuryd [facility] 05/13/2015 14:55:45 polio, unspecified formulation 8 completed Erica Orozco SANTOS mccurdy [facility] 05/13/2015 14:55:45 meningococcal C conjugate 1 completed Erica Orozco SANTOS mccurdy [facility] 05/13/2015 15:07:14 Past Encounters Encounter ID Performer Location Encounter Start Date Encounter Closed Date Diagnosis/Indication Diagnosis SNOMED-CT Code Diagnosis ICD10 Code Diagnosis Note [id number] Milena Pichardo NP , [facility] [place] [address] [place] [address] 09/14/2014 14:52:33 09/14/2014 15:47:33 Adult health examination [id number] see Risk Assessment and Lifestyle Change Counseling section above Check labs below. Pap 03/13/12 neg with 3 yr repeat Td utd Counseling 546271501 Epigastric pain 45064179 Check labs below sxs improving ok to use tums Hypothyroidism 92476004 Recent TSH at goal followed by Dr. Jacobson in [place] sees q 6 months been on present dose for years. Adjustment disorder with depressed mood 83312889 Feels r/t PhD studies feels sxs under control; considerin g stopping/p utting program on hold [id number] Karolina AMRQUES, [facility] [place] [address] [place] [address] 11/14/2015 15:15:45 11/14/2015 15:51:03 Screening for malignant neoplasm of cervix 897766041 Z12.4 Adult heal th examination 702217278 Z00.00 see Risk Assessment and Lifestyle Change Counseling section above Check labs below. SurePath pap today Td utd Venereal d isease screening 255490654 Z11.3 Contraception care 54863 5005 Z30.40 interested in paraguardw ill schedule appt with Dr. Dan screen below per pt request [id number] Kimberly Ellis MD , [facility], [address] [place] [address] 02/06/2016 13:10:19 02/06/2016 14:23:56 Insertion of intrauterine contraceptive device 58263066 Z30.072 [id number] Karolina Walters D.O. , [facility] [place] [address] [place] [address] 05/10/2017 14:58:07 05/10/2017 15:32:44 Hypothyroidism 34051060 E03.9 TSH 0.88doing well on levothyrox ine 88 mcg qdfollowed by provider in [place] MD Adult heal th examination 798048615 Z00.00 see Risk Assessment and Lifestyle Change Counseling section aboveHM: Pap 10/2015 Counseling 904188387 Z71 .9 Depression screening 171 549942 Z13.89 2 out of 27feeling welldepres kristin screening tool administer ed, entered into emr, scored and discussed, time greater than 7.5 minutes [id number] Paul Heredia MD , [facility] [place] [address] [place] [address] 03/03/2018 14:38:24 03/03/2018 15:31:59 Intermittent palpitations 609862756 R00.2 reports singular sensation of a thump (not squeeze ) in her chest, had 2 in one day.isolat ed symptom.no lightheade dness, just these few singular eventsas an EMT brings in 12 leads which are normal , nornal intervals. she has no exertional component of either complainta lso reports muscular type pain over left shoulder exclusivel y when carrying her large book bag.she admits to a lot of stress 144/94 at home , high at schooluppe r 130's 140'sprior SBP had been below 100 i informed her of the benign nature yasmani of her rare clinically non significan t extra beats, and that further workup is not required she will follow her BP and return if eelvations above 140/90 persist, hopefull this reassurran ce will prove helpful. CP is muscular [id number] Karolina Walters D.O. , [facility], [address] [place] [address] 03/29/2018 09:07:10 03/29/2018 10:24:02 Removal of intrauterine device 12878043 Z30.515 [id number] Josh Culp MD , [facility], [address] [place] [address] 05/21/2018 15:07:52 05/21/2018 16:17:04 Insertion of intrauterine contraceptive device 55100068 Z30.430 ParaGard IUD placed without difficulty . Counseled on expectatio ns for bleeding pattern changes.Re d flags reviewed: Pain, unusual cramping, etc. Health Concerns Section Related Observation LastModified by Organization Detai ls LastModified Time None Recorded Concern Status LastModified by Organization Details LastModified Time None Recorded Advance Directives Directive None Recorded Payers Insurance Date Sequence Insurance Name Policy Number Policy Benedict Covered Member ID Benedict Member ID Guarantor Name 05/09/2018 1 [place] [id number] Radha Solitario [id number] Radha Belle Sause 05/26/2018 1 [facility] [facility] (O) [id number] Radha Belle Sause [id number] Radha Belle Sause 11/29/2016 1 [place] [facility] Radha Sause [id number] Radha Belle Sause 11/29/2016 1 [facility] CAREPLUS - CAREPLUS A (MEDICAID HMO) [id number] Radha Sause [id number] Radha Solitario Notes Date Note Type Note Provider Name and Address Organization Details Recorded Time 02/06/2016 text/html IUD InsertionRep orted bypatient.IUDPatient is here for Paragard IUD. Patient counseled on mechanism of action of IUD. Details of placement were reviewed; risks of placement were reviewed, including but not limited to rare perforation, infection and symptoms to watch for; side effects of IUD were reviewed including but not limited to increased bleeding and cramping, adaptation period of 3-6 months , hormone side effects if applicable; expulsion of IUD reviewed; patient verbalized understanding. Patient is low risk. for STD and has negative GC/CHL within 3 months. Patient is not due for pap smear. Patienthas nothad unprotected sex within 2 weeks and test is negativ. Patient is not planning a in the next 2 years. Patient is a nullipand has had no deliveries. She has no known reproductive tract abnormalities Kimberly Ellis MD [address] [place], [address], [facility] 02/06/2016 23:01:05 05/10/2017 text/html Physical Exam/FemaleReported bypatient.PHAPatient is here for a Wellness Visit. She describes her health status as good. Patient's health is last year.Risk Assessment and Lifestyle Change Counseling-female 27-39Reported bypatient.Coronary Artery Disease Risk Assesment:Family History of Coronary Artery Disease(PGF);Does not participate in regular exercise program; Eats a diet low in fats and high in fiber; No personal history of diabetes; No use of tobacco; No history of peripheral vascular disease, AAA, or carotid disease; No personal history of coronary artery disease Breast Cancer Risk Assessment:No family history of breast cancer; Has been to term; No history of female hormone exposure Cervical Cancer Risk Assessment:No abnormal pap smears; No evidence of HPV infection Lung Cancer Risk Assessment:Never smoked; No asbestos exposure Cognitive/Behavioral Risk Assessment:Personal history of depression Safety Risk Assessment:Uses seat belts Diet:Counseled about eating a diet low in trans and saturated fats and high in fiber, fruits and vegetables; Discussed the value of a Mediterranean diet, and eating more fruits and vegetables Exercise counseling:Discussed the importance of daily physical activity; Discussed the importance of weight bearing exercise Safety:Counseled about protecting skin from the sun and lowering the risk of skin cancer Advanced Directives:Discussed the importance of a health care proxy and advanced directives Control:not sexually Emergency Department and Urgent Care:Counseled about appropriate use of the emergency room and availability of urgent care at [facility] Karolina Walters D.O. [address] [place] [address], [phone], [facility] 05/13/2017 12:57:04 03/29/2018 text/html Patient enters oscar zamudio today for possible IUD removal. Paragard IUD inserted [address] Ellis. Had menses recently and when removing her menstrual cup, she noted that it felt like the IUD had dislodged and the string very noticeable. Josh Culp MD [address] [place], [address], [facility] 03/29/2018 09:49:31 05/21/2018 text/html IUD InsertionRep orted bypatient.IUDPatient is here for Paragard IUD. Patient counseled on mechanism of action of IUD. Details of placement were reviewed; risks of placement were reviewed, including but not limited to rare perforation, infection and symptoms to watch for; side effects of IUD were reviewed including but not limited to increased bleeding and cramping, adaptation period of 3-6 months , hormone side effects if applicable; expulsion of IUD reviewed; patient verbalized understanding. Patient is low risk. for STD and . Patient is not due for pap smear. Patienthas nothad unprotected sex within 2 weeks and test is negativ. Patient is not planning a in the next 2 years. Patient is a nullipand has had no deliveries. She has no known reproductive tract abnormalities For ParaGard insertion; had for 2 yrs, then recently expelled in past 2 mo.No concerns, was pleased w. IUD Josh Culp MD [address] [place] [address], [phone], [facility] 05/22/2018 19:54:05 OBGyn Episode No OBEpisode recorded.
== END 2024-08-13 15:13 | disposition home or self-care (01) ==
PROVIDERS: PCP Internal Medicine; Visit Provider Physician Assistant Medical
DX: E78.00 Pure hypercholesterolemia, unspecified (principal); D64.9 Anemia, unspecified; E03.9 Hypothyroidism, unspecified; Z31.9 Encounter for procreative management, unspecified

== ENCOUNTER 2024-08-13 14:27 | Outpatient (REF) | payer BC, SELFPAY ==
[2024-08-13 15:53] LABS: MANUAL DIFF FLAG NO
[2024-08-13 16:38] LABS: Basophils Absolute Auto 0.1 X10*3/uL (0.0-0.2); Basophils Percent Auto 0.7 % (0-2); Eosinophils Absolute Auto 0.2 X10*3/uL (0.0-0.4); Eosinophils Percent Auto 2.8 % (0-4); Hematocrit 38.4 % (37.0-47.0); Hemoglobin 12.7 g/dl (12.0-16.0); Imm Gran Abs Auto 0.01 X10*3/uL (0.00-0.03); Imm Gran Pct Auto 0.1 % (0.0-0.4); Lymphocytes Percent Auto 39.5 % (20-40); Mean Corpuscular HGB Conc 33.1 g/dl (31.0-35.0); Mean Corpuscular Hemoglobin 30.2 pg (27.0-33.0); Mean Corpuscular Volume 91.4 fL (80.0-98.0); Monocytes Absolute Auto 0.3 X10*3/uL (0.1-1.2); Monocytes Percent Auto 4.3 % (2-11); Neutrophils Absolute Auto 3.9 x10*3/uL (2.0-8.3); Neutrophils Percent Auto 52.6 % (45-73); Platelet Count 265 X10*3/uL (160-400); Red Cell Distribution Width 12.5 % (11.0-16.0); White Blood Count 7.5 X10*3/uL (4.8-10.8)
[2024-08-13 16:46] LABS: Estimated Average Glucose 103 mg/dL; Hemoglobin A1C 109.6652 umol/L; Hemoglobin A1c % 5.2 % (<6.0)
[2024-08-13 17:04] LABS: C Reactive Protein < 0.10 mg/dL (< or = 0.50); Iron 96 mcg/dL (30-160); Percent Iron Saturation 35 % (15-50); Total Iron Binding Capacity 271 mcg/dL (228-428); Unsaturated Iron Binding 175 ug/dL
[2024-08-13 17:22] LABS: Ferritin 88 ng/mL (10-250)
[2024-08-13 17:33] LABS: Folate 14.1 ng/mL (> or = 4.0); Vitamin B12 383 pg/mL (200-900)
== END 2024-08-13 14:28 | disposition home or self-care (01) ==
LOC: HO.LAB 14:27
PROVIDERS: PCP Internal Medicine; Visit Provider Physician Assistant Medical
DX: E78.00 Pure hypercholesterolemia, unspecified (principal); D64.9 Anemia, unspecified; E03.9 Hypothyroidism, unspecified; Z31.9 Encounter for procreative management, unspecified; Z00.00 Encounter for general adult medical examination without abnormal findings; Z13.1 Encounter for screening for diabetes mellitus
CPT/HCPCS: 36415; 82607; 82728; 82746; 83036; 83540; 85025; 86140; 96127

== ENCOUNTER 2024-11-03 15:36 | Outpatient (AMB) | payer BC, SELFPAY ==
[2024-11-03 15:37] VITALS: BP 120/80; PULSE 63; O2SAT 98; BMI 25.8
--- NOTE | 2024-11-03 15:37 | MHC.OFFVIS ---
Vital Signs 11/03/24 15:37 Height 5 ft 1.81 in Weight 140 lb 3.424 oz BMI 25.8 BP 120/80 Blood Pressure Location Lt brachial Position Sitting Pulse 63 Pulse Source Pulse Oximeter Pulse Oximetry (%) 98 Oxygen Delivery Method Room Air Intake Visit Reasons: Hypothyroidism, unspecified Intake Note: New patient present today for Hypothyroidism, unspecified. Acds Block 1 Operator Required: No Accompanied by: Self / Same As Patient Allergies amoxicillin Allergy (Mild, Verified 11/03/24 15:41) hives Sulfa (Sulfonamide Antibiotics) Allergy (Mild, Verified 11/03/24 15:41) Hives codeine Adverse Reaction (Unknown, Verified 11/03/24 15:41) Vomiting liquid prednisone Allergy (Mild, Uncoded 11/03/24 15:41) Vomiting Medication List - Last Reconciled 11/03/24 by Augusta Ordaz MD albuterol sulfate 90 mcg/actuation (Ventolin HFA) 2 puffs inhalation Q6H PRN cholecalciferol (vitamin D3) 50 mcg PO DAILY coenzyme Q10 (Ultra CoQ10) 75 mg PO DAILY levothyroxine (Synthroid) 88 mcg PO DAILY multivitamin 1 tab PO DAILY 75-iron [id number] 28 mg iron- 800 mcg (One A Day Women's DHA) pkgs PO HPI Comments Details: 44-year-old female here today for initial evaluation of hypothyroidism. Sees Dr. Deysi Cheatham now at [facility] for infertility, trying since fall 2023 No pregnancies before. Identifies as heterosexual, planning with . Currently on synthroid name 88 mcg daily. Patient currently denies heat or cold intolerance, diarrhea or constipation, hair loss, palpitation, anxiety, mood changes, low energy, changes in appearance of eyes or vision changes, tremors, increased diaphoresis or dry skin. Weight increasing 15 lbs in 1 year? Patient denies any difficulty swallowing, pain on swallowing or voice changes or difficulty breathing. Patient denies any history of childhood neck radiation. Denies having ever used lithium, amiodarone or biotin supplements. Patient denies any family history of thyroid cancer. Mother has hypothyroidism Physical exam General: sitting comfortably in no acute distress HEENT: normocephalic/atraumatic, Neck: supple, symmetrical, no thyromegaly , no dorsocervical or supraclavicular fat pads Cardiac: normal heart sounds Pulm: normal breath sounds B/L, no added breath sounds Abd: not distended, no tenderness Laboratory Tests 04/25/24 10:30 TSH 0.62 Free T4 1.27 US THYROID April 2021 CLINICAL INFORMATION: Hypothyroid, goiter. COMPARISON: None TECHNIQUE: Linear transducer grayscale and color Doppler examination with attention to the region of the thyroid. FINDINGS: SIZE: Measurements of the thyroid lobes and nodules are given in sagittal, anteroposterior and transverse dimensions respectively. Right Thyroid Lobe: 3.6 x 1.0 x 1.0 cm, volume 1.9 mL. Parenchyma: The gland echotexture is homogeneous. Thyroid vascularity is normal. Left Thyroid Lobe: 3.7 x 1.0 x 1.0 cm, volume 1.9 mL. Parenchyma: The gland echotexture is homogeneous. Thyroid vascularity is normal. Isthmus: 0.3 cm in maximum AP dimension. No focal thyroid nodule is seen. NODES: There are small lymph nodes seen in the right midpole measuring 1.5 x 0.7 x 0.5 cm and 0.8 x 0.6 x 0.4 cm. US/US thyroid IMPRESSION: 1. Unremarkable thyroid ultrasound. No nodule seen. 2. There are small lymph nodes in the right mid neck with the largest measuring 1.5 cm without aggressive features. [facility] Medical History (Updated 11/03/24 @ 16:00 by Augusta Ordaz MD) Pure hypercholesterolemia, unspecified Infertility management History of mammogram (~01/08/23) History of COVID-19 Palpitations Mononucleosis Migraine headache Anemia Vitamin D deficiency Hypothyroidism Establishing care with new doctor, encounter for Surgical History H/O wisdom tooth extraction History of tonsillectomy Family History Father Dementia High cholesterol Mother Osteoporosis High cholesterol Social History Housing: House Housing Other:: Teacher Alcohol intake: current Alcohol intake frequency: does not drink Patient Tobacco Use Status: Never used Tobacco service: No Current occupational status: employed Cognitive needs: No Hearing needs: No Vision needs: Yes (rx glasses) Assessment & Plan Assessment & Plan (1) Hypothyroidism: Code(s): E03.9 - Hypothyroidism, unspecified Category: Medical Qualifiers: 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 Currently on Synthroid 88 mcg daily. Last set of labs from April 2024 showed normal TSH and free T4. Per patient she also had labs done last week in September 2024 as part of her infertility workup which also showed normal TSH. Currently she is undergoing infertility workup at [facility], planning for assisted reproduction. I explained to the patient importance of increasing thyroid medication during due to increased requirements. We discussed about going up on the dose 30% as soon as she finds out she is . This can be done by taking 2 extra pills in a week or she can reach out to us and we can send her new prescription. Patient verbalized understanding. 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
--- OUTSIDE RECORDS SUMMARY | 2024-11-03 17:43 | XMS_ITS ---
Author Name [facility] Organization Unknown Assessment and Plan ID Update Date Source Alert Text [place] [facility]-[id number] 02/19/2023 [facility] COVID Vaccination: This patient has received the PFR, COV-19,mRNA,LNP-S,PF,30/0.3,tri [id number] vaccination on 02/19/2023 with lot number [id number] at [facility] Fritz Mcmillan. [place] [facility]-[id number] 02/22/2021 [place] [facility] COVID Vaccination: This patient has received the MOD, COVID-19, mRNA, LNP-S, PF, 0.5mL vaccination on 02/22/2021 with lot number [id number] at [facility]. Encounters Encounter Type Encounter Reason Primary Diagnosis Location Date Ambulatory [facility] 10/23/2024 Care Team Organization Name Specialty Phone Email Start Date End Da te Care [place] 10/23/2024 [facility] 10/23
== END 2024-11-03 15:58 | disposition home or self-care (01) ==
LOC: HO.ENCR 15:36
PROVIDERS: PCP Internal Medicine; Visit Provider Student in an Organized Health Care Education/Training Program
DX: E06.3 Autoimmune thyroiditis (principal)
CPT/HCPCS: 99204

== ENCOUNTER 2024-12-22 15:38 | Outpatient (AMB) | payer BC, SELFPAY ==
[2024-12-22 15:38] VITALS: BP 119/66; PULSE 70; RESP 14; TEMP 36.4; O2SAT 95; BMI 25.0
--- NOTE | 2024-12-22 15:38 | MHC.PC.OV ---
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 Accompanied by: Self / Same As Patient Allergies amoxicillin Allergy (Mild, Verified 12/22/24 15:39) hives Sulfa (Sulfonamide Antibiotics) Allergy (Mild, Verified 12/22/24 15:39) Hives codeine Adverse Reaction (Unknown, Verified 12/22/24 15:39) Vomiting liquid prednisone Allergy (Mild, Uncoded 12/22/24 15:39) Vomiting Tobacco use date assessed: 08/13/24 Dental Screening Dental Screen Date: 08/13/24 [facility] Medical History Pure hypercholesterolemia, unspecified Infertility management History of mammogram (~01/08/23) History of COVID-19 Palpitations Mononucleosis Migraine headache Anemia Vitamin D deficiency Hypothyroidism Establishing care with new doctor, encounter for Surgical History H/O wisdom tooth extraction History of tonsillectomy Family History Father Dementia High cholesterol Mother Osteoporosis High cholesterol 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 1. Little interest or pleasure in doing things: not at all 2. Feeling down, depressed, or hopeless: not at all 3. Trouble falling or staying asleep, or sleeping too much: not at all 4. Feeling tired or having little energy: not at all 5. Poor appetite or overeating: not at all 6. Feeling bad about yourself - or that you are a failure or have let yourself or your family down: not at all 7. Trouble concentrating on things, such as reading the newspaper or watching television: not at all 8. Moving or speaking so slowly that other people could have noticed. Or the opposite - being so fidgety or restless that you have been moving around a lot more than usual: not at all 9. Thoughts that you would be better off or of hurting yourself in some way: not at all Total score: 0 Depression Screening Interpretation: Negative Depression Screening Done: Yes 42014 - PHQ-9 Billing: Yes Source: Developed by Drs. Paul Segal, Erica Vincent, Brice Leger and colleagues, with an educational gamal from [employer]. Thrive Questionnaire Date Thrive assessed: 08/13/24 I am a: Patient What is your living situation today?: I have a steady place to live Within the past 12 months, did the food you bought not last and you didn't have the money to get more?: Never true Within the past 12 months, did you worry whether your food would run out before you got money to buy more?: Never true Do you have trouble paying for medicines?: No Do you have trouble getting transportation to medical appointments?: No Do you have trouble paying your heating and electricity bill?: No Do you have trouble taking care of your child, family member or friend?: No Do you have trouble with day-to-day activities such as bathing, preparing meals, shopping, managing finances, etc.?: No Are you currently unemployed and looking for a job?: No Are you interested in more education?: No Please select the resources that you would like help with: None THRIVE Score: 0 AUDIT C Alcohol Use Questionnaire (AUDIT-C) 1. How often do you have a drink containing alcohol?: Never 3. How often do you have six or more drinks on one occasion?: Never Total Score: 0 Score Reviewed/Action Taken: No SHELLEY-7 AMB Questionnaire SHELLEY-7 Date SHELLEY - 7 assessed: 08/13/24 Feeling nervous, anxious, or on edge: 0 = Not at all Not being able to stop or control worryin = Not at all Worrying too much about different things: 0 = Not at all Trouble relaxin = Not at all Being so restless that it is hard to sit still: 0 = Not at all Becoming easily annoyed or irritable: 0 = Not at all Feeling afraid as if something awful might happen: 0 = Not at all Total SHELLEY-7 score (0-4 normal; 5-9 mild; 10-14 moderate; 15-21 severe): 0 Source: Developed by Drs. Paul Segal, Erica Vincent, Brice Leger and colleagues, with an educational gamal from [employer]. SHELLEY-7 Assessment Billing SHELLEY-7 Assessment Tool: SHELLEY-7 Assessment 21467 Physical exam (Primary Care) Depression Screening Interpretation: Negative Office Procedures Flu Questionnaire Does the patient have a severe egg allergy?: No Does the patient have severe life threatening allergies?: No Does the patient have a fever or illness today?: No Has the patient ever had Guillain-Belcher Syndrome?: No Has the patient ever had any past reaction to a flu shot?: No Immunizations Fluarix [id number] (PF) 45 mcg (15 mcg x 3)/0.5 mL IM syringe Performing Provider: Steve Mckeon MD [facility] Documented (not given) by: CALVIN Abel on 12/22/24 15:45 Reason Not Given: Received Previously Coding Additional Codes PHQ-9 - 40377 - PHQ-9 Billing: Yes ([id number]) SHELLEY-7 Assessment Billing - SHELLEY-7 Assessment Tool: SHELLEY-7 Assessment 69936 ([id number]) Assessment & Plan Assessment & Plan Orders: Orders Influenza [id number] Immunization Today Z23 - Encounter for immunization
== END 2024-12-22 16:02 | disposition home or self-care (01) ==
LOC: HO.HMCSH 15:38
PROVIDERS: PCP Internal Medicine; Visit Provider Internal Medicine
DX: Z23 Encounter for immunization (principal)

== ENCOUNTER → 2024-12-22 15:38 | Outpatient (BNVA) | payer BC, SELFPAY | PROVIDERS: PCP Internal Medicine; Visit Provider Internal Medicine | DX: Z00.00 Encounter for general adult medical examination without abnormal findings (principal); N80.9 Endometriosis, unspecified; N73.6 Female pelvic peritoneal adhesions (postinfective); N95.8 Other specified menopausal and perimenopausal disorders; R63.5 Abnormal weight gain; Z28.89 Immunization not carried out for other reason | CPT/HCPCS: 90471; 96127 ==

== ENCOUNTER 2025-01-06 15:11 | Outpatient (AMB) | payer BC, SELFPAY ==
[2025-01-06 15:19] VITALS: BP 134/76; PULSE 99; TEMP 36.9; O2SAT 97; BMI 24.1
--- NOTE | 2025-01-06 15:19 | MHC.OFFWIV ---
Intake Vital Signs 01/06/25 15:19 Height 5 ft 1.81 in Weight 131 lb BMI 24.1 BP 134/76 Blood Pressure Location Lt brachial Position Sitting Pulse 99 Pulse Source Pulse Oximeter Temp 98.4 F Temp Source Oral Pulse Oximetry (%) 97 Oxygen Delivery Method Room Air Intake Visit Reasons: EP Sore throat, pulse in the 90s, fever Intake Note: pt presents with sore throat, chest congestion with coughing, fevers and increased heart rate x2 days. Pt reports coworkers recently dx with strep throat- she reports pshx tonsillectomy. 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 + staying hydrated + cough No CP or SOB No ear pain Minimal body aches She has been taking OTC cold medicine with tylenol. 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 Alcohol intake frequency: does not drink Patient Tobacco Use Status: Never used Tobacco service: No Current occupational status: employed Cognitive needs: No Hearing needs: No Vision needs: Yes (rx glasses) Review of Systems Const Reports chills, Reports fatigue and Reports fever(s) Eyes Denies change in vision ENT Denies otalgia, Reports nasal congestion, Denies sinus pain, Reports sore throat, Reports throat swelling and Denies tongue swelling Card Denies chest pain and Denies dyspnea Resp Reports chest congestion, Reports cough and Denies dyspnea Musc Reports myalgias Endo Reports fatigue Aller/Immun Reports throat swelling and Denies tongue swelling Physical Exam Exam Exam: General: Non-toxic, NAD. Speaking full sentences. Handling secretions Skin: Warm dry throughout Eye: EOMI, PERRL HENT: Airway patent. Uvula midline. + minimal pharyngeal erythema without exudates or edema. 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 Bilateral canals clear. TM non-erythematous, non-bulging. No TM perforation or hemotympanum noted. Slight fluid behind R TM. Lymph: No lymphadenopathy noted Respiratory: CTA bilaterally. No wheezes, rales or rhonchi Cardiac: RRR. No murmur MSK: Full ROM extremities. Neurology: Alert. No aphasia or facial droop. Gait without abnormality Psych: Good mood and affect Vital Signs: Last Vital Signs Temp 98.4 F 01/06/25 15:19 Pulse 99 01/06/25 15:19 BP 134/76 01/06/25 15:19 Pulse Ox 97 01/06/25 15:19 Oxygen Delivery Method Room Air 01/06/25 15:19 BMI result Body Mass Index 24.1 Results AMB Rapid Strep AMB Rapid Strep Negative Last Edit by aMrlene Ramirez CMA on 01/06/25 15:32 Results Reviewed Results Reviewed: Laboratory Last Values Strep Scn Rapid Clinic Negative 01/06/25 15:28 Assessment & Plan Assessment & Plan (1) Upper respiratory infection: Code(s): J06.9 - Acute upper respiratory infection, unspecified Qualifiers: URI type: unspecified viral URI Qualified Code(s): J06.9 - Acute upper respiratory infection, unspecified Plan: Patient seen and evaluated. Strep: negative Lungs CTA No strep culture indicated COVID/Flu/RSV ordered and obtained Symptomatic management Fluids, rest, OTC pain relief. Patient gave verbal understanding and had no additional questions or concerns at time of discharge All questions answered Orders: Orders AMB Rapid Strep Screen Today Z13.9 - Encounter for screening, unspecified SARS-CoV2/FLU/RSV Today J06.9 - Acute upper respiratory infection, unspecified Coding Level of Care Code Est Pt Level 3 (58434) Diagnoses Viral upper respiratory tract infection J06.9 URI type: unspecified viral URI
== END 2025-01-06 15:53 | disposition home or self-care (01) ==
PROVIDERS: PCP Internal Medicine; Visit Provider Physician Assistant
DX: Z13.9 Encounter for screening, unspecified (principal); J06.9 Acute upper respiratory infection, unspecified

== ENCOUNTER 2025-01-06 15:11 | Outpatient (REF) | payer BC, SELFPAY ==
[2025-01-07 13:01] LABS: Resp Syncy Virus RNA Qual PCR NEGATIVE (Negative); SARS COV2 PCR INHOUSE NEGATIVE (Negative)
== END 2025-01-06 15:12 | disposition home or self-care (01) ==
LOC: HO.LNP 15:11
PROVIDERS: PCP Internal Medicine; Visit Provider Physician Assistant
DX: J06.9 Acute upper respiratory infection, unspecified (principal); Z13.89 Encounter for screening for other disorder
CPT/HCPCS: 87637; 87880

== ENCOUNTER 2025-01-09 09:35 | Outpatient (AMB) | payer BC, SELFPAY ==
[2025-01-09 09:39] VITALS: BP 100/70; PULSE 99; RESP 16; TEMP 37.2; O2SAT 98; BMI 24.4
--- NOTE | 2025-01-09 09:39 | AM.OFFWIN_ITS ---
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 Allergies amoxicillin Allergy (Mild, Verified 01/09/25 09:48) hives Sulfa (Sulfonamide Antibiotics) Allergy (Mild, Verified 01/09/25 09:48) Hives codeine Adverse Reaction (Unknown, Verified 01/09/25 09:48) Vomiting liquid prednisone Allergy (Mild, Uncoded 01/09/25 09:40) Vomiting Medication List - Last Reconciled 01/09/25 by REYNA SharpP- albuterol sulfate 90 mcg/actuation (Ventolin HFA) 2 puffs inhalation Q6H PRN benzonatate 200 mg PO BEDTIME PRN cholecalciferol (vitamin D3) 50 mcg PO DAILY coenzyme Q10 (Ultra CoQ10) 75 mg PO DAILY 75-iron [id number] 28 mg iron- 800 mcg (One A Day Women's DHA) pkgs PO Synthroid (levothyroxine) 88 mcg PO DAILY NS HPI HPI Comments History of Present Illness Details Chief Complaint The patient is a 44-year-old female presenting with worsening sinus infection symptoms. History The patient is a 44-year-old female presenting with complaints of a sinus infection. Acute sinusitis: - The patient was previously seen at a [facility] clinic on January 06 for cold symptoms, including fever, sore throat, and congestion. - During that visit, a rapid strep test, flu swab, and COVID test were all negative. - Her condition has worsened since, with the development of a severe, racking cough that has disrupted her sleep for three nights, requiring her to sit up. - She reports drainage into her eyes, ca using them to be crusted over, and is coughing up thick, yellowish sputum. - She has been taking a generic version of Tylenol Cold, which provides temporary relief, and was prescribed Tessalon Perles, which she states bought her a couple more hours of sleep. Past Medical History - Recent viral illness with negative steve ts for streptococcus, influenza, and COVID-19 on January 06. - Female infertility, currently undergoi evaluation for IVF. Review of Systems - General: Reports fever and feeling unw ell. - HEENT: Reports sore throat, congestion , and sinus drainage into her eyes, resulting in crusted eyelids with yellowish discharge. Reports head pressure. - Respiratory: Reports a severe, racking cough productive of thick, yellowish sputum, which worsens when lying down. Believes her lungs are clear. - Reproductive: Reports she is starting IVF treatment and is scheduled for a Clomid challenge. Physical Exam General: Awake, alert. No apparent distress Eyes: Sclera and conjunctiva clear bilaterally Nose: Nares with clear drainage bilat, turbinates erythematous, no sinus tenderness with palpation bilaterally Ears: Tympanic membranes intact, but fluid noted behind eardrums bilaterally R>L Throat: Moist mucosa membrane, pharynx within normal limits Cardiovascular: Regular rate and rhythm Respiratory: Clear to auscultation bilaterally, no wheezing or increased bronchial sounds, occassional cough Skin: PWD Results - Labs (from 01/06 visit): Rapid strep t est was negative. - Diagnostics (from 01/06 visit): Viral swab was negative for influenza and COVID-19. - Medical Decision Making The patient is a 44-year-old female who presents for evaluation of worsening upper respiratory symptoms, which have progressed since a visit a few days ago where she tested negative for strep, flu, and COVID. Her current symptoms of a severe, productive cough, purulent eye discharge, and sinus pressure, along with physical exam findings of clouded tympanic membranes, are consistent with acute rhinosinusitis, likely viral in etiology. Given the clear lung exam, a chest X-ray is not necessary at this time. While a bacterial infection is not suspected at this point, the patient is significantly symptomatic and requires support to alleviate symptoms and improve sleep. The plan is to prescribe ipratropium nasal spray to help with secretions and to continue Tessalon for her cough. Antibiotics will be considered if her symptoms fail to improve over the next seven days. Concerns regarding her upcoming IVF Clomid challenge were addressed; the prescribed ipratropium nasal spray is not systemically absorbed and will not interfere, and while Tessalon is systemic, it is not expected to cause issues. Plan 1. Acute Sinusitis - The patient's symptoms are consistent with acute rhinosinusitis, which is likely viral. - A bacterial infection is not suspected at this time. - Prescribed ipratropium nasal spray, tw o sprays in each nostril twice daily as needed, to help dry sinus secretions. - Advised to continue using Tessalon Per les as prescribed for cough. - If symptoms do not improve within paola n days, antibiotic therapy will be considered. 2. Female Infertility - The patient is preparing for a Clomid challenge as part of her IVF workup. - Reassured that the prescribed ipratrop ium nasal spray is not systemically absorbed and will not interfere with her fertility treatment. - Advised that Tessalon Perles are not e xpected to interfere, but she can confirm with her fertility provider if she has concerns. Patient Instructions - A prescription for ipratropium nasal s pray has been sent to your pharmacy. - Use two sprays in each nostril twice a day as needed to help dry up your sinuses. - It is safe to continue taking the Lili thiago pearls for your cough. - The nasal spray will not interfere wit h your upcoming fertility treatments. - If your symptoms do not get better in the next seven days, you should follow up, as you may need an antibiotic. Consent Patient was informed and verbally consented to the use of an ambient scribe for clinic note documentation during this visit. 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 Medications: New ipratropium bromide administer into each nostril 2 sprays intranasal BID 30 mL 1RF Coding Level of Care Code Est Pt Level 3 (43593) Diagnoses Viral URI J06.9
== END 2025-01-09 10:01 | disposition home or self-care (01) ==
PROVIDERS: PCP Internal Medicine; Visit Provider Nurse Practitioner Family
DX: J06.9 Acute upper respiratory infection, unspecified (principal)